=== PATIENT | male | born 1960 | race Caucasian/White ===

== ENCOUNTER 2019-02-14 14:17 | Emergency (ER) | payer OTHER ==
[~2019-02-14] VITALS: Ht 175.3 cm; Wt 77.3 kg
[2019-02-14] MEDS ORDERED: VITACAP8 PO (14:27)
[2019-02-14 15:08] LABS: HEMATOCRIT 41.7 % (42.0-52.0); HEMOGLOBIN 13.5 g/dl (13.5-17.5); MEAN CORPUSCULAR HEMOGLOBIN 28.2 pg (27.0-33.0); MEAN CORPUSCULAR HGB CONC 32.4 g/dl (32.0-36.5); MEAN CORPUSCULAR VOLUME 87.1 fl (80.0-96.0); PLATELET COUNT, AUTOMATED 278 10^3/uL (150-450); RED BLOOD COUNT 4.79 10^6/uL (4.30-6.10); WHITE BLOOD COUNT 11.7 10^3/uL (4.0-10.0)
[2019-02-14 15:19] LABS: INR 0.96; PROTHROMBIN TIME 12.5 SECONDS (11.8-14.0)
[2019-02-14 15:27] LABS: ATYPICAL LYMPH 9 % (0-5); EOSINOPHILS 4 % (0-3); LYMPHOCYTES 30 % (16-44); MONOCYTES 5 % (0-5); NEUTROPHILS 52 % (28-66)
[2019-02-14 15:29] LABS: PLATELET ESTIMATE NORMAL (NORMAL)
[2019-02-14] MEDS ORDERED: ASPIRIN 81 MG CHEW TABLET PO ONE (15:30)
[2019-02-14 15:41] LABS: ALBUMIN 3.9 GM/DL (3.2-5.2); ALT/SGPT 27 U/L (12-78); BILIRUBIN,DIRECT 0.1 MG/DL (0.0-0.2); BILIRUBIN,TOTAL 0.2 MG/DL (0.2-1.0); BLOOD UREA NITROGEN 9 MG/DL (7-18); CALCIUM LEVEL 8.9 MG/DL (8.5-10.1); CARBON DIOXIDE LEVEL 31 MEQ/L (21-32); CHLORIDE LEVEL 106 MEQ/L (98-107); CK-MB VALUE MASS 2.1 NG/ML (<3.6); CPK CREATINE PHOSPHOKINASE 159 U/L (39-308); CREATININE FOR GFR 0.95 MG/DL (0.70-1.30); GLOMERULAR FILTRATION RATE > 60.0 (>56); GLUCOSE, FASTING 108 MG/DL (70-100); LIPASE 76 U/L (73-393); MB/CK RELATIVE INDEX 1.32 (< OR =4); NT-PRO BNP 125 PG/ML (<125); POTASSIUM SERUM 3.7 MEQ/L (3.5-5.1); SODIUM LEVEL 141 MEQ/L (136-145); THYROID STIMULATING HORMONE 0.395 uIU/ML (0.358-3.740); TOTAL PROTEIN 7.2 GM/DL (6.4-8.2); TROPONIN I < 0.02 NG/ML (< 0.10)
[2019-02-14] MEDS: NITROGLYCERIN 0.4 MG SUBL TABLET SL PRN ×2 (15:43→16:06)
--- NOTE | 2019-02-14 15:58 | REP ---
Portable chest x-ray: Two views. History: Chest pain. No comparison study. Findings: Monitoring electrodes are seen. The lungs are symmetrically aerated. Pleural angles are sharp. Heart size is borderline. There is a double density overlying the right heart border consistent with left atrial enlargement. There is no evidence of pleural effusion or pulmonary edema. Pulmonary vasculature is not increased. No infiltrate is seen. Impression: Borderline heart size. Question left atrial enlargement. Otherwise no acute disease. Electronically Signed by Yaron Styles MD 02/14/2019 05:21 P
[2019-02-14] MEDS ORDERED: ISOVUE-370 76% 100ML VIAL (Q9967) As Ordered ONE (16:05)
--- NOTE | 2019-02-14 16:57 | REP ---
CT ANGIOGRAM CHEST: TECHNIQUE: Axial contrast enhanced images from the thoracic inlet to the upper abdomen using 100 mL Isovue 370 intravenous contrast material with multiplanar reformations. There is on CT evidence of pulmonary embolism. There is no thoracic aortic aneurysm or dissection. Heart is mildly enlarged. There is no pleural or pericardial effusion. There is no mediastinal, hilar or chest wall lymphadenopathy. There are mild bibasilar fibroatelectatic changes. There are mild degenerative changes of the spine. IMPRESSION: No evidence of pulmonary embolism. No acute pulmonary disease. Electronically Signed by Esteban Jasmine MD 02/17/2019 05:18 P
--- NOTE | 2019-02-14 18:41 | ECGEPIP ---
[facility] - ED Test Date: 2019-02-14 Pat Name: WAYNE GARCIA Department: Room: - Gender: Male [employer] Melter: MIGUEL : 1960 Requested By: Jannet Garrido Order Number: [id number] Reading MD: Anatoliy Costello Measurements Intervals [place] Rate: 70 P: 79 [place]: 170 QRS: 48 QRSD: 150 T: 42 QT: 438 QTc: 474 Interpretive Statements SINUS RHYTHM WITH OCCASIONAL VENTRICULAR PREMATURE COMPLEXES LEFT BUNDLE BRANCH BLOCK NO PRIORS FOR COMPARISON Electronically Signed on 02-14-2019 18:40:56 EST by Anatoliy Costello
[2019-02-14 21:04] LABS: CK-MB VALUE MASS 75.5 NG/ML (<3.6); MB/CK RELATIVE INDEX 13.39 (< OR =4); TROPONIN I 14.4 NG/ML (< 0.10)
[2019-02-14] MEDS ORDERED: CLOPIDOGREL 300 MG TAB (PLAVIX) PO STA (21:07)
[2019-02-14] MEDS ORDERED: HEPARIN DRIP 25,000 UNITS in IV 1 EA IV SCH (21:44)
[2019-02-14] MEDS ORDERED: HEPARIN SOD (PORCINE) 5000 UNITS/ML VIAL IV ONE (21:45)
[2019-02-14 22:15] VITALS: BP 117/59
--- NOTE | 2019-02-15 05:41 | ECGEPIP ---
[facility] - ED Test Date: 2019-02-14 Pat Name: WAYNE GARCIA Department: Room: - Gender: Male [employer] Judge: : 1960 Requested By: STEVE Smith Order Number: [id number] Reading MD: Anatoliy Costello Measurements Intervals [place] Rate: 84 P: 65 [place]: 175 QRS: 17 QRSD: 142 T: -16 QT: 387 QTc: 459 Interpretive Statements SINUS RHYTHM WITH OCCASIONAL VENTRICULAR PREMATURE COMPLEXES LEFT BUNDLE BRANCH BLOCK SIMILAR TO PRIOR ON SAME DATE Electronically Signed on 02-15-2019 5:41:19 EST by Anatoliy Costello
== END 2019-02-14 22:20 | disposition short-term general hospital (02) ==
LOC: M ED 15:45
DX: I21.4 Non-ST elevation (NSTEMI) myocardial infarction (principal); I47.2 Ventricular tachycardia; I44.7 Left bundle-branch block, unspecified; F17.210 Nicotine dependence, cigarettes, uncomplicated
CPT/HCPCS: 71045; 71275; 80048; 80076; 82550; 82553; 83690; 83880; 84443; 84484; 85025; 85610; 85730; 93005; 93041; 94760; 96374; 99291; Q9967